=== PATIENT | female | born 1960 ===

== ENCOUNTER 2024-07-28 11:00 | Inpatient (IN) | payer OTHER ==
[~2024-07-28] VITALS: Ht 165.1 cm; Wt 63.5 kg
[2024-07-28] MEDS ORDERED: NORVASC2.5 M1 (12:38)
[2024-07-28] MEDS ORDERED: PLAQUENIL (12:39)
[2024-07-28 12:40] VITALS: BP 150/80
[2024-07-28 12:43] VITALS: BP 149/89
[2024-07-28 15:25] LABS: RH POSITIVE
[2024-07-31] MEDS ORDERED: POVIDONE-IODINE 118 ML BOTT TOP SCH (15:30)
[2024-07-31] MEDS ORDERED: CEFAZOLIN SODIUM 1,000 MG VIAL IV SCH (15:30)
[2024-07-31] MEDS ORDERED: LIDOCAINE HCL 1%/EPINEPHRINE 20ML VIAL IJ SCH (15:30)
[2024-07-31] MEDS ORDERED: ONDANSETRON HCL 2 MG/ML VIAL IV PRN (17:15)
[2024-07-31] MEDS ORDERED: MORPHINE SULFATE 4 MG/ML CARTRIDGE IV PRN (17:15)
[2024-07-31] MEDS ORDERED: RINGERS SOLUTION,LACTATED 1,000 ML IV SCH (17:15)
[2024-07-31] MEDS ORDERED: MORPHINE SULFATE 4 MG/ML VIAL IV ONE ×2 (18:35→19:05)
[2024-07-31] MEDS ORDERED: KETOROLAC TROMETHAMINE 30 MG VIAL IM SCH (21:00)
[2024-07-31] MEDS ORDERED: FAMOTIDINE/PF 20 MG/2 ML VIAL IV PUSH SCH (21:00)
[2024-07-31 21:23] LABS: HEMATOCRIT 35.4 % (36.0-45.00); HEMOGLOBIN 11.7 g/dL (12.0-15.00); MEAN CORPUSCULAR HEMOGLOBIN 25.8 pg (27.00-32.0); MEAN CORPUSCULAR HGB CONC 33.1 g/dl (32.0-36.0); PLATELET COUNT 203 K/uL (150-450); RED BLOOD COUNT 4.53 M/uL (4.00-6.00); RED CELL DISTRIBUTION WIDTH 14.9 % (11.5-14.5)
[2024-07-31 21:40] VITALS: BP 150/80
[2024-08-01] VITALS: BP 139/77; O2SAT 97
[2024-08-01 05:00] VITALS: BP 150/80
[2024-08-01 06:45] LABS: HEMATOCRIT 33.1 % (36.0-45.00); HEMOGLOBIN 11.2 g/dL (12.0-15.00); MEAN CELL VOLUME 78.7 fL (80.00-100.00); MEAN CORPUSCULAR HEMOGLOBIN 26.6 pg (27.00-32.0); MEAN CORPUSCULAR HGB CONC 33.8 g/dl (32.0-36.0); PLATELET COUNT 196 K/uL (150-450); RED CELL DISTRIBUTION WIDTH 14.7 % (11.5-14.5)
[2024-08-01 08:56] VITALS: BP 145/73; O2SAT 96
[2024-08-01] MEDS ORDERED: HYOSCYAMINE SULFATE 0.125 MG TAB.SUBL SL SCH (09:00)
[2024-08-01] MEDS ORDERED: AMLODIPINE BESYLATE 5 MG TABLET PO SCH (09:00)
[2024-08-01] MEDS ORDERED: ACETAMINOPHEN WITH CODEINE 1 UDTAB TABLET PO PRN ×2 (10:30→11:15)
[2024-08-01 16:00] VITALS: BP 141/80
[2024-08-01] MEDS ORDERED: POLYETHYLENE GLYCOL 3350 17 GM BLIST.PACK PO SCH (17:00)
[2024-08-01 23:11] VITALS: BP 122/75
[2024-08-02 07:41] LABS: HEMATOCRIT 28.7 % (36.0-45.00); HEMOGLOBIN 9.9 g/dL (12.0-15.00); MEAN CORPUSCULAR HGB CONC 34.6 g/dl (32.0-36.0); PLATELET COUNT 170 K/uL (150-450); RED BLOOD COUNT 3.68 M/uL (4.00-6.00); RED CELL DISTRIBUTION WIDTH 14.8 % (11.5-14.5)
[2024-08-02 09:00] VITALS: BP 119/73; O2SAT 97
[2024-08-02] MEDS ORDERED: AMINOCAPROIC ACID 250 MG/ML VIAL IV STA (11:38)
[2024-08-02] MEDS ORDERED: ENALAPRILAT DIHYDRATE 1.25 MG/ML VIAL IV PRN (12:30)
[2024-08-02] MEDS ORDERED: HYDROCHLOROTHIAZIDE 12.5 MG CAPSULE PO NR (13:30)
[2024-08-02] MEDS ORDERED: Cyanocobalamin/Mecobalamin 1 TAB.SL SL NR (13:30)
[2024-08-02] MEDS ORDERED: SOD FERRIC GLUC COMPLX/SUCROSE 62.5 MG in 0.9 % SODIUM CHLORIDE 50 ML IV SCH (13:30)
[2024-08-02 13:37] LABS: INR 1.08; PROTHROMBIN TIME 11.7 SECONDS (9.0-11.5)
[2024-08-02] MEDS ORDERED: PIPERACILLIN/TAZOBACTAM SODIUM 3.375 GM in DEXTROSE 5 % IN WATER 100 ML IV SCH (14:00)
[2024-08-02 16:26] VITALS: BP 118/77; O2SAT 99
[2024-08-02] MEDS ORDERED: METRONIDAZOLE/SODIUM CHLORIDE 500 MG/100 ML PIGGYBACK IV SCH (17:00)
[2024-08-02] MEDS ORDERED: AMINOCAPROIC ACID 250 MG/ML VIAL IV SCH (20:00)
[2024-08-03] VITALS: BP 120/66
[2024-08-03] MEDS ORDERED: PANTOPRAZOLE SODIUM 40 MG/VIAL VIAL IV SCH (06:00)
[2024-08-03 07:26] LABS: HEMATOCRIT 27.5 % (36.0-45.00); HEMOGLOBIN 9.4 g/dL (12.0-15.00); MEAN CELL VOLUME 78.3 fL (80.00-100.00); MEAN CORPUSCULAR HEMOGLOBIN 26.7 pg (27.00-32.0); MEAN CORPUSCULAR HGB CONC 34.1 g/dl (32.0-36.0); PLATELET COUNT 165 K/uL (150-450); RED BLOOD COUNT 3.51 M/uL (4.00-6.00); RED CELL DISTRIBUTION WIDTH 14.8 % (11.5-14.5)
[2024-08-03 07:47] LABS: COL EPI 145 SECONDS (82-175)
[2024-08-03 07:53] LABS: CALCIUM 8.8 mg/dL (8.5-10.1); CREATININE SERUM 0.98 mg/dL (0.55-1.02); GFR 56.78; PHOSPHOROUS 2.4 mg/dL (2.5-4.9); POTASSIUM 3.76 mEq/L (3.5-5.1)
[2024-08-03] MEDS ORDERED: HYDROCHLOROTHIAZIDE 12.5 MG CAPSULE PO SCH ×2 (09:00)
[2024-08-03] MEDS ORDERED: SOD FERRIC GLUC COMPLX/SUCROSE 62.5 MG in 0.9 % SODIUM CHLORIDE 50 ML IV SCH (09:00)
[2024-08-03] MEDS ORDERED: Cyanocobalamin/Mecobalamin 1 TAB.SL SL SCH (09:00)
[2024-08-03] MEDS ORDERED: POTASSIUM PHOS,M-BASIC-D-BASIC 3 MM/ML VIAL IV NR (09:00)
[2024-08-03 11:29] VITALS: BP 117/72; O2SAT 97
[2024-08-03 16:22] VITALS: BP 112/63
[2024-08-04] VITALS: BP 117/71
[2024-08-04 07:06] LABS: HEMATOCRIT 27.1 % (36.0-45.00); HEMOGLOBIN 9.4 g/dL (12.0-15.00); MEAN CELL VOLUME 76.8 fL (80.00-100.00); MEAN CORPUSCULAR HEMOGLOBIN 26.7 pg (27.00-32.0); MEAN CORPUSCULAR HGB CONC 34.8 g/dl (32.0-36.0); PLATELET COUNT 185 K/uL (150-450); RED BLOOD COUNT 3.53 M/uL (4.00-6.00); RED CELL DISTRIBUTION WIDTH 15.1 % (11.5-14.5)
[2024-08-04 08:06] VITALS: BP 113/65; O2SAT 98
[2024-08-04 12:33] VITALS: BP 100/61
[2024-08-04 16:31] VITALS: BP 110/71
[2024-08-05 00:56] VITALS: BP 101/65
[2024-08-05 09:10] VITALS: BP 121/75; O2SAT 99
[2024-08-05 16:00] VITALS: BP 136/78
[2024-08-05] MEDS ORDERED: CELEBREX100 MG PO (19:24)
[2024-08-05] MEDS ORDERED: COLACE100 MG PO (19:31)
[2024-08-05] MEDS ORDERED: METRONIDAZOLE500 MG PO (19:39)
[2024-08-05] MEDS ORDERED: FERROUS SULFAT325 MG PO (19:43)
[2024-08-05] MEDS ORDERED: FEOSOL325 MG PO (19:47)
[2024-08-06] MEDS ORDERED: PANTOPRAZOLE SODIUM 40 MG TABLET.DR PO SCH (06:00)
== END 2024-08-05 21:12 | disposition home or self-care (01) | DRG 742 ==
LOC: O/R 07-31 09:13 → SURH 07-31 11:00 → OB/GYN 07-31 17:43
PROVIDERS: Internal Medicine Geriatric Medicine; ADMIT Obstetrics & Gynecology; ATTEND Obstetrics & Gynecology
PROC: 0JQC0ZZ Repair Pelvic Region Subcutaneous Tissue and Fascia, Open Approach (ICD-10-PCS; 2024-07-31)
PROC: 0USG0ZZ Reposition Vagina, Open Approach (ICD-10-PCS; 2024-07-31)
PROC: 0UT97ZZ Resection of Uterus, Via Natural or Artificial Opening (ICD-10-PCS; principal; 2024-07-31 11:30)
DX: N81.3 Complete uterovaginal prolapse (principal); D68.9 Coagulation defect, unspecified; N72 Inflammatory disease of cervix uteri; M32.9 Systemic lupus erythematosus, unspecified; I11.9 Hypertensive heart disease without heart failure; D64.9 Anemia, unspecified